=== PATIENT | female | born 1980 | race Caucasian/White ===

== ENCOUNTER 2018-12-30 09:12 | Emergency (ER) | payer OTHER ==
[~2018-12-30] VITALS: Ht 167.6 cm; Wt 85.0 kg
[2018-12-30 09:16] VITALS: Ht 167.6 cm; Wt 85.0 kg
[2018-12-30] MEDS ORDERED: ALBUTEROL 0.083% (NEB) 2.5 MG/3 ML AMP HHN STA (10:27)
[2018-12-30] MEDS ORDERED: SOD CHLORIDE 0.9% 1,000 ML IV STA (10:27)
[2018-12-30] MEDS ORDERED: AZITHROMYCIN 250 MG TAB PO STA (10:27)
[2018-12-30] MEDS ORDERED: CEFTRIAXONE 1 GM/50 ML (PMX) 50 ML IVPB STA (10:27)
--- NOTE | 2018-12-30 10:29 | ERD ---
ER Documentation Chief Complaint Chief Complaint Complains of a cough with SOB x 3 days HPI 38-year-old female, previously healthy, presents to the emergency department, complaining of 2 weeks with persistent upper respiratory symptoms including runny nose, cough and chest congestion. Her symptoms became bad during the last 3 days including shortness of breath on exertion, subjective fever and chills. The patient reports a history of pneumonia, she has been taken [id number] medication without improvement of the symptoms. She denies chest pain, no palpitations, no leg edema. ROS All systems reviewed and are negative except as per history of present illness. Medications Home Meds Active Scripts Ibuprofen* (Motrin*) 600 Mg Tab, 600 MG PO Q8, #15 TAB Prov:LYNNE GUADALUPE MD 12/30/18 Albuterol Sulfate* (Proair HFA*) 8.5 Gm Hfa.aer.ad, 2 PUFF INH Q4 for cough for 7 Days, #1 INHALER Prov:LYNNE GUADALUPE MD 12/30/18 Azithromycin* (Zithromax*) 250 Mg Tablet, 250 MG PO .ZPACK DIRECTED, #6 TAB TAKE 500 MG (2 TABS) THE FIRST DAY THEN 250 MG (1 TAB) DAYS 2-5 Prov:LYNNE GUADALUPE MD 12/30/18 Allergies Allergies: Coded Allergies: No Known Allergy (Unverified , 12/30/18) PMhx/Soc Medical and Surgical Hx: pt denies Medical Hx, pt denies Surgical Hx Hx Alcohol Use: No Hx Substance Use: No Hx Tobacco Use: No FmHx Family History: No diabetes, No coronary disease Physical Exam Vitals Vital Signs Date Temp Pulse Resp B/P (MAP) Pulse Ox O2 O2 Flow FiO2 Time Delivery Rate 12/30/18 97.7 93 17 120/71 99 Room Air 12:54 (87) 12/30/18 82 18 95 21 11:00 12/30/18 98.1 127 20 148/94 99 09:16 (112) Physical Exam Const: Mild distress due to persistent cough. Head: Atraumatic Eyes: Normal Conjunctiva ENT: Normal External Ears, Nose and Mouth. Neck: Full range of motion. No meningismus. Resp: Bilateral rhonchi to auscultation bilaterally Cardio: Regular rate and rhythm, no murmurs Abd: Soft, non tender, non distended. Normal bowel sounds Skin: No petechiae or rashes Back: No midline or flank tenderness Ext: No cyanosis, or edema Neur: Awake and alert Psych: Normal Mood and Affect Result Diagram: 12/30/18 1038 12/30/18 1038 Results 24 hrs Laboratory Tests Test 12/30/18 10:38 White Blood Count 9.0 10^3/ul Red Blood Count 4.28 10^6/ul Hemoglobin 13.5 g/dl Hematocrit 40.2 % Mean Corpuscular Volume 93.9 fl Mean Corpuscular Hemoglobin 31.5 pg Mean Corpuscular Hemoglobin Concent 33.6 g/dl Red Cell Distribution Width 12.0 % Platelet Count 292 10^3/UL Mean Platelet Volume 9.8 fl Immature Granulocytes % 0.200 % Neutrophils % 68.5 % Lymphocytes % 13.8 % Monocytes % 5.8 % Eosinophils % 10.8 % Basophils % 0.9 % Nucleated Red Blood Cells % 0.0 /100WBC Immature Granulocytes # 0.020 10^3/ul Neutrophils # 6.2 10^3/ul Lymphocytes # 1.2 10^3/ul Monocytes # 0.5 10^3/ul Eosinophils # 1.0 10^3/ul Basophils # 0.1 10^3/ul Nucleated Red Blood Cells # 0.0 10^3/ul Sodium Level 138 mmol/L Potassium Level 4.1 mmol/L Chloride Level 100 mmol/L Carbon Dioxide Level 22 mmol/L Anion Gap 16 Blood Urea Nitrogen 7 mg/dl Creatinine 0.64 mg/dl Est Glomerular Filtrat Rate mL/min > 60 mL/min Glucose Level 100 mg/dl Calcium Level 9.5 mg/dl Current Medications Medications Dose Sig/John Start Time Status Last (Trade) Ordered Route PRN Stop Time Admin Dose Reason Admin Sodium 1,000 ml @ Q1H STAT 12/30/18 DC 12/30/18 Chloride 1,000 mls/hr IV 10:27 11:00 12/30/18 11:26 125 mg ONCE ONCE 12/30/18 DC 12/30/18 Methylprednis IV 10:30 11:01 olone Sodium 12/30/18 10:45 Succinate (Solu-Medrol) Albuterol 5 mg ONCE STAT 12/30/18 DC 12/30/18 (Proventil HHN 10:27 10:59 0.083% (Neb)) 12/30/18 10:45 Ipratropium 0.5 mg ONCE ONCE 12/30/18 DC 12/30/18 [place] INH 10:30 11:07 (Atrovent 12/30/18 10:45 0.02% (Neb)) 500 mg ONCE STAT 12/30/18 DC 12/30/18 Azithromycin PO 10:27 11:02 (Zithromax) 12/30/18 10:45 Ceftriaxone 50 ml @ ONCE STAT 12/30/18 DC 12/30/18 Sodium 100 mls/hr IVPB 10:27 11:02 12/30/18 10:56 Albuterol 2.5 mg STK-MED 12/30/18 DC (Proventil ONCE .ROUTE 10:38 0.083% (Neb)) 12/30/18 17:02 Ipratropium 0.5 mg STK-MED 12/30/18 DC [place] ONCE .ROUTE 10:38 (Atrovent 12/30/18 17:02 0.02% (Neb)) DIAGNOSTIC IMAGING REPORT Patient: MARIO YEE : 1980 Age: 38 Sex: F MR #: [id number] DOS: 12/30/18 1027 Ordering MD: LYNNE GUADALUPE MD Location: [facility] Room/Bed: PROCEDURE: XR Chest PA CLINICAL INDICATION: Short of breath TECHNIQUE: An PA radiograph of the chest was submitted. COMPARISON: None. FINDINGS: Cardiovascular: The cardiovascular silhouette appears unremarkable. Lung Palmer: The lung palmer appear clear with no nodule, alveolar infiltrate, or interstitial prominence evident. Pleural Spaces: There is no pneumothorax or pleural fluid accumulation evident. Osseous Structures: The osseous structures appear intact. Soft Tissues: The soft tissues appear unremarkable. IMPRESSION: Unremarkable PA chest. Physician Dewayne Date Time Electronically viewed and signed by Physician Dewayne on 12/30/2018 11:07 RH/ CC: LYNNE GUADALUPE MD [id number] EKG read by me: Rate/Rhythm: Regular rate and rhythm at a rate of 91 Intervals: Normal No acute ST changes. No T wave inversion Impression: No evidence of acute ischemia or arrhythmia Procedures/MDM Vital signs stable, no respiratory distress. Differential diagnosis include but not limited to: Respiratory infection bacterial/viral/fungal. Influenza, croup, bronchiolitis, pneumonitis, allergies, GERD. Less likely foreign body aspiration, cardiac related. Physical examination and clinical presentation consistent most likely with viral infection with early superimposed bacterial infection. During the ED course the patient remained stable, no new complaints. Treatment options and clinical impression discussed with the patient who agrees with management. The patient is stable to be treated outpatient and will be discharged home. Some side effects of prescribed medications (headache, rash, nausea, vomiting, diarrhea, interactions with other medications) were reviewed. The patient needs to follow up with the primary care provider in the next 48h. If symptoms persist, worsen or new symptoms develop, then patient should return to the ED immediately. Disclaimer: Inadvertent spelling and grammatical errors are likely due to EHR/dictation software use and do not reflect on the overall quality of patient care. Also, please note that the electronic time recorded on this note does not necessarily reflect the actual time of the patient encounter. Departure Diagnosis: Primary Impression: Cough Additional Impression: Bronchitis Condition: Stable Additional Instructions: Thank you very much for allowing us to participate in your care. Your health and safety is our top priority at [facility]. Call your primary care doctor TOMORROW for an appointment during the next 2-4 days and bring all the information and medications prescribed. Have prescriptions filled and follow precisely the directions on the label. If the symptoms get worse and your provider is unavailable, return to the Emergency Department immediately. LYNNE GUADALUPE MD Dec 30, 2018 10:29
[2018-12-30] MEDS ORDERED: IPRATROPIUM (NEB) 0.5 MG/2.5 ML AMP INH ONE (10:30)
[2018-12-30] MEDS ORDERED: METHYLPREDNISOLONE 125 MG INJ IV ONE (10:30)
[2018-12-30] MEDS ORDERED: IPRATROPIUM (NEB) 0.5 MG/2.5 ML AMP ONE (10:38)
[2018-12-30] MEDS ORDERED: ALBUTEROL 0.083% (NEB) 2.5 MG/3 ML AMP ONE (10:38)
[2018-12-30] MEDS ORDERED: IBUP-1542 PO (12:41)
[2018-12-30] MEDS ORDERED: ALBU8.5H8 INH (12:41)
[2018-12-30] MEDS ORDERED: AZIT250T PO (12:41)
[2018-12-30 12:54] VITALS: BP 120/71; PULSE 93; RESP 17
== END 2018-12-30 12:55 | disposition home or self-care (01) ==
LOC: FTE 09:12
DX: J40 Bronchitis, not specified as acute or chronic (principal); R06.02 Shortness of breath
CPT/HCPCS: 71045; 80048; 85025; 87400; 93005; 94664; J0696; J2930; J7030; Z7610; 96361; 96365; 96375